=== PATIENT | male | born 1990 | race Caucasian/White ===

== ENCOUNTER 2016-08-09 19:23 | Emergency (ER) | payer OTHER ==
[~2016-08-09] VITALS: Ht 170.2 cm; Wt 98.1 kg
[2016-08-09 19:39] VITALS: Ht 170.2 cm; Wt 98.1 kg
[2016-08-09] MEDS ORDERED: DIAZ-90 PO (20:00)
--- NOTE | 2016-08-09 20:10 | EN ---
Date/Time of Note Date/Time of Note DATE: 08/09/16 TIME: 20:09 ER Progress Note This is a 26-year-old male presenting to the emergency department complaining of intermittent moderate bilateral lumbar back pain for the past 3 days. Patient rates the pain moderate in severity and it is painful with certain movements. Patient states that he saw his primary care physician 3 days ago and got a medication for naproxen and Flexeril, patient says that has not given him any relief. Patient states that they did x-rays at the office and there was no relief. Patient has an appointment to see his primary care physician tomorrow. On examination, patient was nontender to palpation in his spine. Patient has full range of motion however he had pain with range of motion. This is likely a lumbar strain I have a low suspicion for cauda equina, spinal abscess, nephrolithiasis. Patient appears well without any neuro deficits. Patient was evaluated RME, I believe this is a lumbar strain and discussed with patient that he can follow-up with his primary care physician tomorrow to get a referral to see an orthopedist or a physical therapy. I think patient will benefit from lumbar exercises and rest. I was going to write patient a prescription for short course of Valium for muscle relaxation however patient states that he did numerous research on the overall and wants to get a UA. Patient will be sent to ER to for further action management. RICK BENTLEY PA-C Aug 09, 2016 20:10
[2016-08-09 22:55] LABS: URINE BLOOD (Dip) POC Trace-intact (NEGATIVE)
[2016-08-09] MEDS ORDERED: HYDROCODONE/APAP (5/325) TAB PO ONE (23:00)
[2016-08-09] MEDS ORDERED: ORPH100T PO (23:18)
[2016-08-09] MEDS ORDERED: MED4DP PO (23:18)
[2016-08-09] MEDS ORDERED: HYDR-906 PO (23:19)
--- NOTE | 2016-08-09 23:27 | ERD ---
ER Documentation Chief Complaint Date/Time DATE: 08/09/16 TIME: 23:22 Chief Complaint low back pain x 3 days, denies injury HPI This is a 26-year-old male that presents to the ER with lower back pain for the last 3 days. Patient denies any trauma. Patient states that pain is sharp in quality and is worse whenever he twists his back. Patient went to his primary care doctor and x-rays were taken. There was some narrowing of L1 through L3. Patient denies any urinary or bowel incontinence. He denies any urinary frequency or dysuria. He denies any hematuria. Patient has been taking naproxen and Flexeril for his pain. This has not worked. ROS 12 point review of systems was done, all negative except per HPI. Medications Home Meds Active Scripts Hydrocodone/Acetaminophen ([place] 5-325 Tablet) 1 Each Tablet, 1 TAB PO Q6H Y for PAIN, #20 TAB Prov:NOEMI,VIRGINIE C 08/09/16 Orphenadrine Citrate (Norflex) 100 Mg Tablet.sa, 100 MG PO BID for 3 Days, TAB.SA Prov:NOEMI,VIRGINIE C 08/09/16 Methylprednisolone* (Medrol* DOSE PACK) 4 Mg/Dose-Pack Tab.ds.pk, 4 MG PO . DIRECTED for 6 Days, PACKET Prov:NOEMI,VIRGINIE C 08/09/16 Allergies Allergies: Coded Allergies: No Known Allergy (Unverified , 08/09/16) PMhx/Soc Medical and Surgical Hx: pt denies Medical Hx, pt denies Surgical Hx History of Surgery: No Anesthesia Reaction: No Hx Neurological Disorder: No Hx Respiratory Disorders: No Hx Cardiac Disorders: No Hx Psychiatric Problems: No Hx Miscellaneous Medical Probl: Yes (back contusion before) Hx Alcohol Use: Yes Hx Substance Use: No Hx Tobacco Use: No Smoking Status: Never smoker Physical Exam Vitals Vital Signs Date Time Temp Pulse Resp B/P Pulse Ox O2 Delivery O2 Flow Rate FiO2 08/09/16 19:39 98.3 78 20 133/80 100 Physical Exam GENERAL: The patient is well developed and appropriate for usual state of health , in no apparent distress. NECK: C-spine is soft and supple. There is no cervical lymphadenopathy. CHEST: Clear to auscultation bilaterally. There are no rales, wheezes or rhonchi. HEART: Regular rate and rhythm. No murmurs, clicks, rubs or gallops. ABDOMEN: Soft, nontender and nondistended. Good bowel sounds. No rebound or guarding. No gross peritonitis. No gross organomegaly or masses. No Brewer sign or McBurney point tenderness. No pulsatile abdominal mass. BACK: No midline or flank tenderness. . Tense paraspinal muscles. Negative leg raise test. No step- offs. EXTREMITIES: Equal pulses bilaterally. There is no peripheral clubbing, cyanosis or edema. No focal swelling or erythema. Full range of motion. Grossly neurovascularly intact. NEURO: Alert and oriented. Cranial nerves II through XII are intact. Motor strength in all 4 extremities with 5/5 strength. Sensation grossly intact. Normal speech and gait. SKIN: There is no apparent rash or petechia. The skin is warm and dry. Results 24 hrs Laboratory Tests Test 08/09/16 22:58 Bedside Urine Blood Trace-intact Bedside Urine Glucose (UA) Negative Bedside Urine Ketones (LAB) Negative Bedside Urine Leukocyte Esterase (L Negative Bedside Urine Nitrite (LAB) Negative Bedside Urine Protein (LAB) Negative Bedside Urine pH (LAB) 6.0 Current Medications Medications (Trade) Dose Ordered Sig/Liv Route PRN Reason Start Time Stop Time Status Last Admin Dose Admin Acetaminophen/ Hydrocodone Bitart ([place] (5/325)) 1 tab ONCE ONCE PO 08/09/16 23:00 08/09/16 23:01 DC 08/09/16 22:51 Procedures/MDM Differential Diagnosis includes but is not limited to back strain, vertebral fracture, epidural abscess, cauda equina, herniated disc, AAA rupture, kidney stones, UTI, pyelonephritis. This is likely a back strain. Patient did have some xrays done which howed some disc narrowing. Patient is n/v intact and has normal ROM of his lower extremities. There is no evidence of UTI. Patient will be sent home with norco norflex, a short course of steroids. Patient needs to f /u with PCP within 1-2 days or return to ER sooner if symptoms worsen. Plan was discussed with the patient, he understands and agrees with plan. Departure Diagnosis: Primary Impression: Back pain Condition: Stable Patient Instructions: Back Exercises: Lower Back Rotation, Causes of Lumbar ( Low Back) Pain, Back Exercises: Abdominal Lift, Back Exercises, Lumbar, Back Pain (Acute Or Chronic) Referrals: DOCTOR,NOT ON STAFF (PCP) your doctor Additional Instructions: FOLLOW UP WITH YOUR PRIMARY CARE PHYSICIAN TOMORROW.Return to this facility if you are not improving as expected. Take all medicines as directed. Return to this facility if you are not improving as expected. You have been given a medicine which may cause drowsiness.DO NOT DRIVE OR OPERATE DANGEROUS MACHINERY while taking this medicine! VIRGINIE FRANKLIN Aug 09, 2016 23:26
== END 2016-08-09 23:29 | disposition home or self-care (01) ==
LOC: E/R 19:23 → FTE 23:29
DX: M54.5 Low back pain (principal)
CPT/HCPCS: 81003; 99284

== ENCOUNTER 2017-01-13 21:50 | Emergency (ER) | END 2017-01-13 23:24 | disposition home or self-care (01) | DX: A08.4 Viral intestinal infection, unspecified (principal) ==